=== PATIENT | female | born 1975 | race Caucasian/White ===

== ENCOUNTER 2016-12-22 16:42 | Emergency (ER) | payer BC ==
[2016-12-22 17:07] VITALS: BMI 31.8
[2016-12-22 18:34] LABS: BASO # 0.1 K/uL (0.0-0.2); BASO % 0.9 % (0.0-2.0); EOS # 0.1 K/uL (0.0-0.7); EOS % 1.1 % (0.0-4.0); HEMOGLOBIN 13.2 g/dL (11.0-16.0); LYMPH # 2.5 K/uL (1.0-4.3); LYMPH % 29.8 % (20.0-40.0); MEAN CELL VOLUME 87.8 fL (81.0-99.0); MEAN CORPUSCULAR HEMOGLOBIN 28.9 pg (27.0-31.0); MEAN CORPUSCULAR HGB CONC 32.9 g/dL (33.0-37.0); MEAN PLATELET VOLUME 9.5 fL (7.2-11.7); MONO # 0.7 K/uL (0.0-0.8); MONO % 8.1 % (0.0-10.0); NEUT % 60.1 % (50.0-75.0); NRBC % 0.1 % (0.0-2.0); RBC 4.57 Mil/uL (3.80-5.20); RED CELL DISTRIBUTION WIDTH 14.7 % (11.5-14.5); WHITE BLOOD COUNT 8.3 K/uL (4.8-10.8)
[2016-12-22 18:38] LABS: HCG,QUALITATIVE URINE NEGATIVE (NEGATIVE); SQUAMOUS EPITHIAL 6 /hpf (0-5); URINE BACTERIA RARE (<OCC); URINE BILIRUBIN NEGATIVE (NEGATIVE); URINE BLOOD NEGATIVE (NEGATIVE); URINE CLARITY Hazy (Clear); URINE COLOR Yellow (YELLOW); URINE GLUCOSE (UA) NORMAL (Normal); URINE LEUKOCYTE ESTERASE NEG Leu/uL (Negative); URINE NITRATE NEGATIVE (NEGATIVE); URINE PROTEIN NEGATIVE (NEGATIVE); URINE UROBILINOGEN NORMAL mg/dL (0.2-1.0)
[2016-12-22 18:41] LABS: ALBUMIN 4.1 g/dL (3.5-5.0)
[2016-12-22 18:44] LABS: ALB/GLOB RATIO 1.3 (1.0-2.1); AST/SGOT 37 U/L (14-36); GFR AFRICAN-AMERICAN > 60; GFR NON-AFRICAN AMERICAN > 60
[2016-12-22 18:45] LABS: ALT/SGPT 61 U/L (9-52); BLOOD UREA NITROGEN 8 mg/dL (7-17); CALCIUM 8.7 mg/dl (8.6-10.4)
[2016-12-22 18:46] LABS: BARBITURATES, UR POSITIVE (NEGATIVE)
[2016-12-22 18:47] LABS: BENZODIAZEPINES, UR NEGATIVE (NEGATIVE)
[2016-12-22 18:50] LABS: OPIATES, UR NEGATIVE (NEGATIVE); PHENCYCLIDINE, UR NEGATIVE (NEGATIVE)
--- NOTE | 2016-12-22 19:09 | C.PDOC ---
History Of Present Illness 41 year old female who presents to the ER with a complaint of anxiety, dizziness , and panic. Patient has had a Hx of panic, anxiety, migraines, and headaches since 2011 for which she takes fioricet. Patient states she is calm and normal now; however, wants to be evaluated anyway. Denies physical complaints at this time. Time Seen by Provider: 12/22/16 18:19 Chief Complaint (Nursing): Dizziness/Lightheaded History Per: Patient History/Exam Limitations: no limitations Onset/Duration Of Symptoms: Hrs Current Symptoms Are (Timing): Still Present Activity At Onset Of Symptoms: Other (Not known) Seizure Or Post-ictal Symptoms: None Fall Associated With With Symptoms: No - Symptoms Of CVA Associated Symptoms: denies: Impaired Speech, Seizure Activity, New Vision Deficit(Left), New Vision Deficit(Right), Decreased Ability To Walk, New Confusion Past Medical History Reviewed: Historical Data, Nursing Documentation, Vital Signs Vital Signs: Last Vital Signs Temp 97.3 F L 12/22/16 19:16 Pulse 82 12/22/16 19:16 Resp 20 12/22/16 19:16 BP 119/69 12/22/16 19:16 Pulse Ox 98 12/22/16 19:16 - Medical History PMH: Anemia, HTN, Hypercholesterolemia Surgical History: Cholecystectomy Family History: States: Unknown Family Hx - Social History Hx Tobacco Use: No Hx Alcohol Use: No Hx Substance Use: No - Immunization History Hx Tetanus Toxoid Vaccination: No Hx Influenza Vaccination: No Hx Pneumococcal Vaccination: No Review Of Systems Constitutional: Negative for: Fever, Chills Gastrointestinal: Negative for: Nausea, Vomiting, Diarrhea Neurological: Positive for: Dizziness Psych: Positive for: Anxiety Physical Exam - Physical Exam Appears: Non-toxic, No Acute Distress Skin: Normal Color, Warm, Dry Head: Atraumatic, Normacephalic Eye(s): bilateral: Normal Inspection, PERRL, EOMI Oral Mucosa: Moist Neck: Normal, Supple Chest: Symmetrical, No Tenderness Cardiovascular: Rhythm Regular, No Murmur Respiratory: Normal Breath Sounds, No Rales, No Rhonchi, No Wheezing Gastrointestinal/Abdominal: Soft, No Tenderness Neurological/Psych: Oriented x3, Normal Speech, Normal Cognition ED Course And Treatment - Laboratory Results Result Diagrams: 12/22/16 18:29 12/22/16 18:29 Lab Interpretation: Abnormal (tox + barbs') ECG: Interpreted By Me ECG Rhythm: Sinus Rhythm ECG Interpretation: Normal Rate From EC O2 Sat by Pulse Oximetry: 99 Pulse Ox Interpretation: Normal Progress Note: EKG ordered. Reevaluation Time: 19:08 Reassessment Condition: Improved (remains asymptomatic) Medical Decision Making Medical Decision Making: similar presentations from 2012 for panic/anxiety- normal exam/w/u. Barbs from ? Fioricet Disposition Doctor Will See Patient In The: Office Counseled Patient/Family Regarding: Studies Performed, Diagnosis - Disposition Referrals: [facility] [Outside] [facility] [Outside] Disposition: HOME/ ROUTINE Disposition Time: 19:09 Condition: GOOD Additional Instructions: sigue en [facility] osmani necessario para evaluacion' de ornelas anxiedad. Instructions: Anxiety (ED) Print Language: GERMAN - Clinical Impression Clinical Impression: Panic attack - Scribe Statement The provider has reviewed the documentation as recorded by the Scribe Sorin Kern All medical record entries made by the Scribe were at my direction and personally dictated by me. I have reviewed the chart and agree that the record accurately reflects my personal performance of the history, physical exam, medical decision making, and the department course for this patient. I have also personally directed, reviewed, and agree with the discharge instructions and disposition.
[2016-12-22 19:17] VITALS: BP 119/69; PULSE 82; RESP 20; TEMP 97.3
[2016-12-23 01:34] VITALS: O2SAT 99
--- NOTE | 2016-12-24 08:59 | CARD ---
APPROVED REPORT EKG Measurement Heart [id number] <Conclusion> Normal sinus rhythm with sinus arrhythmia Normal ECG
== END 2016-12-22 19:17 | disposition home or self-care (01) ==
LOC: C.ER 16:42
DX: F41.0 Panic disorder [episodic paroxysmal anxiety] (principal); I10 Essential (primary) hypertension; D64.9 Anemia, unspecified
CPT/HCPCS: 80053; 81001; 82948; 84484; 84703; 85025; 99285; G0480

== ENCOUNTER 2017-01-24 10:17 | Emergency (ER) | payer BC ==
[2017-01-24 10:17] VITALS: BMI 31.8
[2017-01-24 10:35] VITALS: RESP 18; O2SAT 100
[2017-01-24 11:01] LABS: RBC URINE < 1 /hpf (0-3); URINE BILIRUBIN NEGATIVE (NEGATIVE); URINE BLOOD NEGATIVE (NEGATIVE); URINE COLOR Straw (YELLOW); URINE GLUCOSE (UA) NORMAL (Normal); URINE KETONE NEGATIVE (NEGATIVE); URINE LEUKOCYTE ESTERASE NEG Leu/uL (Negative); URINE PROTEIN NEGATIVE (NEGATIVE); URINE UROBILINOGEN NORMAL mg/dL (0.2-1.0); WBC URINE < 1 /hpf (0-5)
--- NOTE | 2017-01-24 12:01 | C.PDOC ---
History Of Present Illness 41 year old female with PMH HTN and Hyperlipidiemia presents to ED with complaints of lower abdominal pain radiating to back for one week. Patient describes pain as mild intermittent pain unable to describe quality. She reports last bowel movement this morning, and last BM was 2 days prior. Denies any dysuria, vaginal discharge or bleeding. Time Seen by Provider: 01/24/17 10:49 Chief Complaint (Nursing): Abdominal Pain History Per: Patient History/Exam Limitations: no limitations Onset/Duration Of Symptoms: Days Past Medical History Reviewed: Historical Data, Nursing Documentation, Vital Signs Vital Signs: Last Vital Signs Temp 98.4 F 01/24/17 12:13 Pulse 68 01/24/17 12:13 Resp 18 01/24/17 12:13 BP 108/70 01/24/17 12:13 Pulse Ox 100 01/24/17 12:19 - Medical History PMH: Anemia, HTN, Hypercholesterolemia Surgical History: Cholecystectomy Family History: States: No Known Family Hx - Social History Hx Tobacco Use: No Hx Alcohol Use: No Hx Substance Use: No - Immunization History Hx Tetanus Toxoid Vaccination: No Hx Influenza Vaccination: No Hx Pneumococcal Vaccination: No Review Of Systems Except As Marked, All Systems Reviewed And Found Negative. Constitutional: Negative for: Fever, Chills Cardiovascular: Negative for: Chest Pain, Palpitations Respiratory: Negative for: Shortness of Breath Gastrointestinal: Positive for: Abdominal Pain, Constipation. Negative for: Nausea, Vomiting Genitourinary: Negative for: Dysuria, Incontinence, Vaginal Discharge, Vaginal Bleeding Musculoskeletal: Positive for: Back Pain Skin: Negative for: Rash Neurological: Negative for: Weakness, Numbness, Headache, Dizziness Physical Exam - Physical Exam Appears: Well, Non-toxic, No Acute Distress Skin: Warm, Dry, No Rash Head: Atraumatic, Normacephalic Eye(s): bilateral: Normal Inspection Oral Mucosa: Moist Neck: Normal ROM Chest: Symmetrical Cardiovascular: Rhythm Regular, No Murmur Respiratory: Normal Breath Sounds, No Accessory Muscle Use, No Rales, No Rhonchi , No Stridor, No Wheezing Gastrointestinal/Abdominal: Soft, No Tenderness, No Distention, No Guarding Back: Normal Inspection, No CVA Tenderness, No Vertebral Tenderness, No Paraspinal Tenderness Pelvic: Other (Normal external genitalia. (-) significant vaginal discharge. (- ) pain on cervical motion. (-) adnexal mass or tenderness.) Extremity: Normal ROM, No Tenderness Neurological/Psych: Oriented x3, Normal Speech Gait: Steady ED Course And Treatment O2 Sat by Pulse Oximetry: 100 Medical Decision Making Medical Decision Making: Impression: lower abdominal pain radiates to back Plan: * UA Progress: UA reviewed and negative for UTI or . Pelvic exam showed no findings. Xray showed fecal retention. Patient has no fever and stable vital signs in Ed, abdominal exam was nontender without guarding or rebound to suggestive of infectious or surgical pathology. Symptoms likely related to constipation. recommend increase in fiber, exercise and water intake. Will DC home with Rx. Patient given follow up instructions. Instructed to return to ER if symptoms worsen or new symptoms arise. Disposition Counseled Patient/Family Regarding: Diagnosis, Need For Followup, Rx Given - Disposition Referrals: [facility] [Outside] Disposition: HOME/ ROUTINE Disposition Time: 12:01 Condition: STABLE Additional Instructions: Vaya a ornelas mdico o la clnica en 2-5 enriquez sin falta, para mas evaluacin. [place] los medicamentos osmani indicado. Volver a la javier de emergencia en cualquier momento si los sntomas persisten o empeoran. Prescriptions: Docusate [Colace] 100 mg PO TID #30 cap Magnesium Citrate [Citrate of Mag] 300 ml PO ONCE #1 bottle Instructions: Constipation (DC), High Fiber Diet (ED) Forms: [employer] (Mauritanian) Print Language: LAO - POA Present On Arrival: None - Clinical Impression Clinical Impression: Constipation - Scribe Statement The provider has reviewed the documentation as recorded by the Scribe (Tiera Kirkland) All medical record entries made by the Scribe were at my direction and personally dictated by me. I have reviewed the chart and agree that the record accurately reflects my personal performance of the history, physical exam, medical decision making, and the department course for this patient. I have also personally directed, reviewed, and agree with the discharge instructions and disposition.
[2017-01-24 12:14] VITALS: BP 108/70; PULSE 68; TEMP 98.4
--- NOTE | 2017-01-24 15:11 | RAD ---
HISTORY: abd pain constipation COMPARISON: No prior. FINDINGS: BOWEL: Normal. No obstruction. No free air. BONES: Normal. OTHER FINDINGS: Surgical is identified in the right upper quadrant abdomen as well as left lower quadrant. IMPRESSION: Nonobstructive bowel gas pattern. No prominent free intrarenal gas evident.
== END 2017-01-24 12:18 | disposition home or self-care (01) ==
LOC: C.ER 10:17
DX: K59.00 Constipation, unspecified (principal)

== ENCOUNTER 2017-08-26 15:10 | Emergency (ER) | payer BC ==
[2017-08-26 15:10] VITALS: BMI 31.8
--- NOTE | 2017-08-26 15:32 | C.PDOC ---
History Of Present Illness 41 y/o female presents to the ER complaining of a migraine which has been present for the past 11 days.The migraine is in the posterior aspect of the head .Patient states that the migraine is similar to prior episodes but the current migraine is more persistent than usual. She usually takes Advil for migraines which provides relief. However, patient reports that she took Advil at 12 pm today without improvement. She notes that she also has nausea. Time Seen by Provider: 08/26/17 15:29 Chief Complaint (Nursing): Headache History Per: Patient History/Exam Limitations: no limitations Onset/Duration Of Symptoms: Days Current Symptoms Are (Timing): Still Present Severity: Moderate Past Medical History Reviewed: Historical Data, Nursing Documentation, Vital Signs Vital Signs: Last Vital Signs Temp 97.6 F 08/26/17 17:05 Pulse 65 08/26/17 17:05 Resp 20 08/26/17 17:05 BP 130/84 08/26/17 17:05 Pulse Ox 100 08/26/17 17:05 - Medical History PMH: Anemia, HTN, Hypercholesterolemia Surgical History: Cholecystectomy Family History: States: No Known Family Hx - Social History Hx Tobacco Use: No Hx Alcohol Use: No Hx Substance Use: No - Immunization History Hx Tetanus Toxoid Vaccination: No Hx Influenza Vaccination: No Hx Pneumococcal Vaccination: No Review Of Systems Except As Marked, All Systems Reviewed And Found Negative. Constitutional: Negative for: Fever, Chills Gastrointestinal: Positive for: Nausea. Negative for: Vomiting, Diarrhea Neurological: Positive for: Headache Physical Exam - Physical Exam Appears: Other (mild discomfort) Skin: Normal Color, Warm Head: Atraumatic, Normacephalic Eye(s): bilateral: Normal Inspection (no photophobia) Neurological/Psych: Oriented x3, Normal Speech ED Course And Treatment O2 Sat by Pulse Oximetry: 98 (RA) Pulse Ox Interpretation: Normal Reevaluation Time: 17:08 Reassessment Condition: Improved Medical Decision Making Medical Decision Making: Plan: --Reglan PO --Tylenol PO --Imitrex SC Disposition Counseled Patient/Family Regarding: Diagnosis, Need For Followup, Rx Given - Disposition Referrals: [facility] [Other] Disposition: HOME/ ROUTINE Disposition Time: 17:08 Condition: IMPROVED Prescriptions: Ondansetron [Zofran Odt] 4 mg PO TID PRN #9 odt PRN Reason: Nausea/Vomiting Instructions: Migraine Headache (DC) Forms: [facility] (Malay), Work Excuse Print Language: KINYARWANDA - Clinical Impression Clinical Impression: Migraine - Scribe Statement The provider has reviewed the documentation as recorded by the Rossibe Fernando Mathews Provider Attestation: All medical record entries made by the Rossibmary were at my direction and personally dictated by me. I have reviewed the chart and agree that the record accurately reflects my personal performance of the history, physical exam, medical decision making, and the department course for this patient. I have also personally directed, reviewed, and agree with the discharge instructions and disposition.
[2017-08-27 11:06] VITALS: BP 130/84; PULSE 65; RESP 20; TEMP 97.6; O2SAT 98
== END 2017-08-26 17:12 | disposition home or self-care (01) ==
LOC: C.ER 15:10
DX: G43.909 Migraine, unspecified, not intractable, without status migrainosus (principal); I10 Essential (primary) hypertension; E78.00 Pure hypercholesterolemia, unspecified
CPT/HCPCS: 96372; 99284; J3030